=== PATIENT | male | born 1955 | race Caucasian/White ===

== ENCOUNTER 2020-06-23 20:05 | Emergency (ER) | payer BC ==
[~2020-06-23] VITALS: Ht 180.3 cm; Wt 88.5 kg
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
[2020-06-23] MEDS ORDERED: LIDOCAINE 1%-EPI 1:100,000 20 ML VIAL ONE (20:27)
[2020-06-23] MEDS ORDERED: TDAP [DIPH/PERTUSSIS/TET] 0.5 ML VIAL IM ONE (20:34)
[2020-06-23] MEDS ORDERED: ACETAMINOPHEN ES 500 MG TABLET ONE (20:34)
[2020-06-23] MEDS: ACETAMINOPHEN 325 MG TABLET PO ONE (20:40)
[2020-06-23] MEDS: TDAP [DIPH/PERTUSSIS/TET] 0.5 ML VIAL IM ONE (20:40)
--- NOTE | 2020-06-23 21:29 | NUR ---
EMT AT BEDSIDE
--- NOTE | 2020-06-23 21:29 | NUR ---
PA AT BEDSIDE FOR WOUND CARE
[2020-06-23] MEDS ORDERED: TRAM50TA2 PO ×2 (21:52→21:53)
[2020-06-23] MEDS ORDERED: ACET-2605 PO (21:52)
[2020-06-23] MEDS ORDERED: CEPH500C2 PO (21:53)
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
[2020-06-23 22:31] VITALS: BP 131/86
== END 2020-06-23 22:31 | disposition home or self-care (01) ==
LOC: ER 20:08
DX: S61.412A Laceration without foreign body of left hand, initial encounter (principal); I10 Essential (primary) hypertension; Z60.2 Problems related to living alone; Z79.899 Other long term (current) drug therapy; Z90.81 Acquired absence of spleen; W26.0XXA Contact with knife, initial encounter; Y93.89 Activity, other specified; Y92.89 Other specified places as the place of occurrence of the external cause; Y99.8 Other external cause status
CPT/HCPCS: 12002; 90471; 90715; 99283; A6403 ×2; J3490; L3763

== ENCOUNTER 2020-07-02 11:02 | Emergency (ER) | payer BC ==
[~2020-07-02] VITALS: Ht 180.3 cm; Wt 90.7 kg
[2020-07-02 11:02] VITALS: BP 159/100
[~2020-07-02 11:02] MED LIST: ACET-2605 PO; CEPH500C2 PO; TRAM50TA2 PO
--- NOTE | 2020-07-02 11:30 | NUR ---
DR. MOY AT BEDSIDE F0R EVAL.
== END 2020-07-02 11:55 | disposition home or self-care (01) ==
LOC: ER 11:05
DX: S61.412D Laceration without foreign body of left hand, subsequent encounter (principal); I10 Essential (primary) hypertension; Z60.2 Problems related to living alone; Z79.899 Other long term (current) drug therapy; X58.XXXD Exposure to other specified factors, subsequent encounter